=== PATIENT | female | born 1995 | race Caucasian/White ===

== ENCOUNTER 2019-02-15 14:18 | Emergency (ER) | payer OTHER ==
[2019-02-15 14:32] VITALS: BP 127/81
--- NOTE | 2019-02-15 14:52 | ER Document Report ---
HPI - HPI Time Seen by Provider: 02/15/19 14:41 Context: Patient is a 23-year-old female who presents to the emergency department with a possible abscess to the back of her ear. She states that she has had that there for about a month. Denies any fever, body aches, chills, or any other symptoms. Patient states over the last few days, the pain has gotten progressively worse. Patient states that there has been some drainage from the area. states it is purulent drainage. Patient has a history of cellulitis. - ROS Systems Reviewed and Negative: Yes All other systems reviewed and negative - DERM Skin Problems: Pustule - behind right ear Past Medical History - General Information source: Patient - Social History Smoking Status: Never Smoker Family History: Reviewed & Not Pertinent Vertical Provider Document - CONSTITUTIONAL Agree With Documented VS: Yes Exam Limitations: No Limitations General Appearance: No Apparent Distress - HEENT HEENT: Atraumatic, Normocephalic, PERRLA. negative: Conjuctival Injection, Pharyngeal Exudate, Pharyngeal Tenderness, Pharyngeal Erythema, Tympanic Membrane Red, Tympanic Membrane Bulging - NECK Neck: Normal Inspection - RESPIRATORY Respiratory: No Respiratory Distress - CARDIOVASCULAR Cardiovascular: Regular Rate, Regular Rhythm Pulses: Normal: Radial - MUSCULOSKELETAL/EXTREMETIES Musculoskeletal/Extremeties: FROM - NEURO Level of Consciousness: Awake, Alert, Appropriate - DERM Integumentary: Warm, Dry, Abscess - Posterior right ear at crease, purulent drainage noted Course - Re-evaluation Re-evalutation: 02/15/19 14:43 I was able to express some purulent drainage from behind her ear. It will be sent for culture. Patient was instructed to take clindamycin in the next 48 hours if she continues to have worsening pain. She is to follow-up with her primary care provider. I have a very low suspicion for necrotizing fasciitis. Follow-up precautions were given. Verbal discharge instructions were given to the patient. They verbalized understanding. They are stable for discharge. - Vital Signs Vital signs: Temp Pulse Resp BP Pulse Ox 98.7 F 71 20 127/81 H 98 02/15/19 14:31 02/15/19 14:31 02/15/19 14:31 02/15/19 14:31 02/15/19 14:31 Discharge - Discharge Clinical Impression: Abscess Condition: Stable Disposition: HOME, SELF-CARE Instructions: Post Incision and Drainage Additional Instructions: You were seen for an abscess that required drainage. Please clean this area with soap and water twice daily and apply a topical antibiotic. Dress the area after each cleaning if needed. Please return if you develop fever, vomiting, the pain at the site worsens, you notice spreading redness from the area, or you have any other symptoms that are concerning to you. If you feel your symptoms are not any better, please start antibiotics in 2 days. Prescriptions: Clindamycin HCl [Cleocin 150 mg Capsule] 300 mg PO Q6 7 Days #56 capsule Referrals: [facility] [Provider Group] - Follow up as needed
== END 2019-02-15 14:59 | disposition home or self-care (01) ==
LOC: ER 14:18
DX: H60.01 Abscess of right external ear (principal)
CPT/HCPCS: 87070; 87075; 87186; 87205; 99282